=== PATIENT | male | born 1930 | race Caucasian/White ===

== ENCOUNTER 2018-10-26 17:19 | Emergency (ER) | payer OTHER ==
--- NOTE | 2018-10-26 17:53 | EDPHY ---
H & P Time Seen by Provider: 10/26/18 18:45 HPI/ROS: Chief complaint. Lightheaded HPI. 88-year-old male here by EMS with sudden onset of lightheadedness. He is off balance with walking. Worse with standing but not moving his head. 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 No chest pain or shortness of breath. Denies feeling like he could pass out. Not sick without fever cough. No headache. No abdominal pain. No focal weakness or paresthesias. No similar symptoms previously ROS 10 systems were reviewed and negative with the exception of the elements mentioned in the history of present illness Past Medical/Surgical History: DVT/PE, hypothyroid, prostate cancer Social History: , nonsmoker, no alcohol Smoking Status: Never smoked Physical Exam: General Appearance: Alert well-developed male mild distress vital signs are stable Eyes: Pupils equal round reactive. No icterus. No nystagmus. ENT, Mouth: Mucous membranes are moist. Respiratory: There are no retractions, lungs are clear to auscultation. Cardiovascular: Regular rate and rhythm. Gastrointestinal: Abdomen is soft and nontender, no masses, bowel sounds normal. Neurological: Awake and alert, sensory and motor exams grossly normal. Speech is normal. Cranial nerves are normal. There is no pronator drift. Finger-to- nose and [id number] are intact bilaterally Skin: Warm and dry, no rashes. Musculoskeletal: Neck is supple nontender. Extremities symmetrical, full range of motion. Psychiatric: Patient is oriented X 3, there is no agitation. Constitutional: Initial Vital Signs Temperature (C) 36.4 C 10/26/18 17:30 Heart Rate 76 10/26/18 17:30 Respiratory Rate 16 10/26/18 17:30 Blood Pressure 124/81 H 10/26/18 17:30 O2 Sat (%) 96 10/26/18 17:30 O2 Delivery Mode Room Air Allergies/Adverse Reactions: Penicillins Allergy (Verified 10/26/18 17:36) Home Medications: Medication Instructions Recorded Levothyroxine 10/26/18 Meclizine HCl [Meclizine HCl 25 mg 25 mg PO BID #7 tab 10/26/18 (RX,OTC)] Pradaxa 10/26/18 Medical Decision Making - Diagnostics EKG Interpretation: EKG interpreted by me shows normal sinus rhythm with borderline first-degree AV block. Normal axis. QRS normal there is no significant ST elevation or depression. No arrhythmia. Rate 66 Imaging Results: Imaging Impressions Head CT 10/26/18 18:04 Impression: Normal for age. No hemorrhage. Final concordant results discussed with Dr. Lawrence Gracia at 6:21 PM. General information for patients regarding this examination can be found at [email or web address]. If you have questions or comments about this report, please contact me at [phone] (hospital) or [phone] (cell). Procedures: IV normal saline, monitor. Meclizine orally ED Course/Re-evaluation: Troponin is 0 On re-evaluation patient is improved with walking. Patient feels well to go home Patient and family and I discussed imaging lab results. We discussed treatment plan including criteria for return importance follow-up further evaluation. He expresses understanding and agreement Differential Diagnosis: This appears to be vertigo. His symptoms have resolved. There is no evidence for intracranial bleeding. There is no evidence for stroke. No evidence for acute coronary syndrome. Patient is better after meclizine - Data Points Laboratory Results: Laboratory Results 10/26/18 17:25 10/26/18 17:25 10/26/18 10/26/18 10/26/18 18:28 17:25 17:25 WBC RBC Hgb Hct MCV MCH MCHC RDW Plt Count MPV Neut % (Auto) Lymph % (Auto) Moore % (Auto) Eos % (Auto) Baso % (Auto) Nucleat RBC Rel Count Absolute Neuts (auto) Absolute Lymphs (auto) Absolute Monos (auto) Absolute Eos (auto) Absolute Basos (auto) Absolute Nucleated RBC Immature Gran % Immature Gran # PT 13.7 SEC SEC (12.0-15.0) INR 1.03 (0.83-1.16) Sodium 128 mEq/L L mEq/L (135-145) Potassium 4.1 mEq/L mEq/L (3.5-5.2) Chloride 95 mEq/L L mEq/L (97-110) Carbon Dioxide 23 mEq/l mEq/l (22-31) Anion Gap 10 mEq/L mEq/L (6-14) BUN 17 mg/dL mg/dL (7-23) Creatinine 0.8 mg/dL mg/dL (0.7-1.3) Estimated GFR > 60 Glucose 134 mg/dL H mg/dL (70-100) Calcium 9.1 mg/dL mg/dL (8.5-10.4) POC Troponin I 0.00 ng/mL ng/mL (0.00-0.08) 10/26/18 17:25 WBC 6.88 10^3/uL 10^3/uL (3.80-9.50) RBC 4.86 10^6/uL 10^6/uL (4.40-6.38) Hgb 15.5 g/dL g/dL (13.7-17.5) Hct 44.7 % % (40.0-51.0) MCV 92.0 fL fL (81.5-99.8) MCH 31.9 pg pg (27.9-34.1) MCHC 34.7 g/dL g/dL (32.4-36.7) RDW 14.0 % % (11.5-15.2) Plt Count 225 10^3/uL 10^3/uL (150-400) MPV 9.6 fL fL (8.7-11.7) Neut % (Auto) 59.8 % % (39.3-74.2) Lymph % (Auto) 26.5 % % (15.0-45.0) Moore % (Auto) 11.8 % % (4.5-13.0) Eos % (Auto) 0.4 % L % (0.6-7.6) Baso % (Auto) 0.6 % % (0.3-1.7) Nucleat RBC Rel Count 0.0 % % (0.0-0.2) Absolute Neuts (auto) 4.12 10^3/uL 10^3/uL (1.70-6.50) Absolute Lymphs (auto) 1.82 10^3/uL 10^3/uL (1.00-3.00) Absolute Monos (auto) 0.81 10^3/uL H 10^3/uL (0.30-0.80) Absolute Eos (auto) 0.03 10^3/uL 10^3/uL (0.03-0.40) Absolute Basos (auto) 0.04 10^3/uL 10^3/uL (0.02-0.10) Absolute Nucleated RBC 0.00 10^3/uL 10^3/uL (0-0.01) Immature Gran % 0.9 % % (0.0-1.1) Immature Gran # 0.06 10^3/uL 10^3/uL (0.00-0.10) PT INR Sodium Potassium Chloride Carbon Dioxide Anion Gap BUN Creatinine Estimated GFR Glucose Calcium POC Troponin I Medications Given: Discontinued Medications Sodium Chloride (Ns) 1,000 mls @ 0 mls/hr IV ONCE ONE; Wide Open PRN Reason: Protocol Stop: 10/26/18 18:05 Last Admin: 10/26/18 18:27 Dose: 1,000 mls Meclizine HCl (Meclizine Hcl) 25 mg PO EDNOW ONE Stop: 10/26/18 18:06 Last Admin: 10/26/18 18:26 Dose: 25 mg Point of Care Test Results: Chemistry 10/26/18 18:28 POC Troponin I 0.00 ng/mL ng/mL (0.00-0.08) Departure - Departure Disposition: Home, Routine, Self-Care Clinical Impression: Vertigo Condition: Good Instructions: Vertigo (ED) Additional Instructions: Meclizine 1 pill every 8 hr as needed for dizziness. Return for worsening symptoms. Follow-up with your regular physician in 1 day if not back to normal Referrals: DINORAH HIGH [Other] - 1 day, if not improved Prescriptions: Meclizine HCl [Meclizine HCl 25 mg (RX,OTC)] 25 mg PO BID #7 tab
[2018-10-26] MEDS ORDERED: NS 1,000 ML IV ONE (18:04)
[2018-10-26] MEDS ORDERED: MECLIZINE HCL 25 MG TAB PO ONE ×2 (18:05→18:54)
[2018-10-26 18:11] LABS: PLATELET COUNT 225 10^3/uL (150-400)
[2018-10-26 18:21] LABS: INR 1.03 (0.83-1.16); PROTIME(PATIENT) 13.7 SEC (12.0-15.0)
[2018-10-26 19:11] VITALS: BP 146/83
--- NOTE | 2018-10-26 20:45 | CPEKG ---
Test Reason : OPEN Blood Pressure : / mmHG Vent. Rate : 066 BPM Atrial Rate : 066 BPM P-R Int : 270 ms QRS Dur : 089 ms QT Int : 406 ms P-R-T Axes : 037 -04 033 degrees QTc Int : 426 ms Sinus rhythm Prolonged [place] interval Confirmed by Roula Gracia ([id number]) on 10/26/2018 8:45:04 PM Referred By: ROULA GRACIA Confirmed By:Roula Gracia
== END 2018-10-26 19:11 | disposition home or self-care (01) ==
LOC: EDUNIT#
DX: R42 Dizziness and giddiness (principal); E03.9 Hypothyroidism, unspecified; E86.9 Volume depletion, unspecified; Z86.718 Personal history of other venous thrombosis and embolism
CPT/HCPCS: 84484-ER